=== PATIENT | male | born 1980 | race Caucasian/White ===

== ENCOUNTER 2017-09-17 14:11 | Emergency (ER) | payer OTHER, BC ==
[2017-09-17 14:18] VITALS: BP 138/93; TEMP 98; BMI 36.1
--- NOTE | 2017-09-17 14:26 | PDOC ---
Rapid Medical Evaluation Time Seen by Provider: 09/17/17 14:14 Medical Evaluation: Allergies Allergy/AdvReac Type Severity Reaction Status Date / Time No Known Allergies Allergy Verified 09/17/17 14:14 09/17/17 14:15 I have performed a brief in-patient evaluation of this patient. The patient presents with a chief complaint of abdominal pain in left upper quadrant with movement only x 2 days. States back injury Sunday on the job and feels the pain is in conjunction to injury. Took ibuprofen with no relief of pain. Denies nausea, vomiting, diarrhea or constipation. Pertinent physical exam findings: NAD Lungs cta bilateral Heart s1s2 abdomen: + tenderness in left upper quadrant, + bowel sounds I have ordered the following: took ibuprofen this am will defer orders to md/pa attending to patient. The patient will proceed to the ed for further evaluation.
[2017-09-17] MEDS ORDERED: KETOROLAC TROMETHAMINE 60 MG/2 ML VIAL IM ONE (16:30)
--- NOTE | 2017-09-17 16:30 | PDOC ---
History of Present Illness - General Chief Complaint: Pain Stated Complaint: ABD PAIN Time Seen by Provider: 09/17/17 14:14 History Source: Patient Exam Limitations: No Limitations - History of Present Illness Initial Comments: CHIEF COMPLAINT: 37 y/o afebrile male c/o abdominal pain x 2 days. HISTORY OF PRESENT ILLNESS: The patient states 3 days ago he lifted something heavy at work and strained a muscle in his back. He states the next day he began feeling abdominal pain around his belly button that he states is only present when he moves or touches the area. He denies f/c, n/v/d, CP, SOB, cough , hemoptysis, hematuria, dysuria, decrease in PO intake, decrease in urinary output, smoking history. Vital signs on arrival are notable for pulse of 125. REVIEW OF SYSTEMS: GENERAL/CONSTITUTIONAL: No fever/chills. No weakness. No weight change. HEAD, EYES, EARS, NOSE AND THROAT: No change in vision. No ear pain or discharge. No sore throat. CARDIOVASCULAR: No chest pain or shortness of breath. RESPIRATORY: No cough, wheezing, or hemoptysis. GASTROINTESTINAL: +abd pain. No nausea, vomiting diarrhea. GENITOURINARY: No dysuria, frequency, or change in urination. MUSCULOSKELETAL: No joint or muscle swelling or pain. No neck or back pain. SKIN: No rash or easy bruising. NEUROLOGIC: No headache, vertigo, loss of consciousness, or loss of sensation. PHYSICAL EXAM: GENERAL: The patient is awake, alert, and fully oriented, in no acute distress. He is well appearing and ambulatory. HEAD: Normal with no signs of trauma. ENT: Pupils equal, round and reactive to light, extraocular movements intact, sclera anicteric, conjunctiva clear. Neck supple. LUNGS: Clear to auscultation bilaterally. Normal excursion. No respiratory distress or use of accessory muscles. CV: RRR, S1/S2, no MRG. Cap refill < 2 sec. ABDOMEN: Soft, non-distended, tender to palpation around umbilicus, especially superior umbilical region. No hernias appreciated. No rebound, guarding or rigidity. No mcburney's point TTP. No RUQ TTP. EXTREMITIES: Normal range of motion, no edema. NEUROLOGICAL: Normal speech, normal gait. CN II-XII grossly intact. SKIN: Warm, dry, normal turgor, no rashes or lesions noted. Past History - Past Medical History Allergies/Adverse Reactions: Allergies Allergy/AdvReac Type Severity Reaction Status Date / Time No Known Allergies Allergy Verified 09/17/17 14:14 Home Medications: Ambulatory Orders NK [No Known Home Medication] 09/17/17 COPD: No Other medical history: DENIES. - Suicide/Smoking/Psychosocial Hx Smoking History: Never smoked Have you smoked in the past 12 months: No Hx Alcohol Use: No Drug/Substance Use Hx: No *Physical Exam - Vital Signs Last Vital Signs Temp Pulse Resp BP Pulse Ox 98 F 125 H 19 138/93 96 09/17/17 14:14 09/17/17 14:14 09/17/17 14:14 09/17/17 14:14 09/17/17 14:14 Medical Decision Making - Medical Decision Making A/P: 37 y/o male with most likely small hernia s/p lifting something heavy at work 3 days ago. Will give IM toradol and reassess. Patient states he feels better and HR has improved. He does still have tachycardia but his previous visit in 2017 he also had tachycardia. He did see a explosives detonator but does not recall if he mentioned that. Will give work note. Suggested he lay down for the next few days, avoid heavy lifting and return to the ER with any worsening or concerning symptoms. The patient verbalizes understanding of all instructions, has no further questions and is awaiting discharge. *DC/Admit/Observation/Transfer Diagnosis at time of Disposition: Hernia, Tachycardia Abdominal pain Qualifiers: Abdominal location: periumbilical Qualified Code(s): R10.33 - Periumbilical pain - Discharge Dispostion Disposition: HOME Condition at time of disposition: Improved - Referrals - Patient Instructions Printed Discharge Instructions: DI for Abdominal Pain-Adult, DI for Ventral Hernia Additional Instructions: Discharge Instructions: -Lie down flat on your back as much as possible over the next few days -Take Motrin for pain if needed -Avoid heavy lifting -Follow up with your doctor within 1 week -Follow up with your explosives detonator regarding your fast heart rate -Return to the ER with any worsening or concerning symptoms - Post Discharge Activity Forms/Work/School Notes: Back to Work
[2017-09-17] MEDS ORDERED: KETOROLAC TROMETHAMINE 60 MG/2 ML VIAL ONE (16:32)
[2017-09-17 17:17] VITALS: PULSE 114
== END 2017-09-17 17:41 | disposition home or self-care (01) ==
LOC: JERFT 14:11 → JER 14:11 → JERFT 17:41
CPT/HCPCS: 99281-25

== ENCOUNTER 2018-02-08 14:01 | Emergency (ER) | payer BC ==
--- NOTE | 2018-02-08 14:59 | PDOC ---
Rapid Medical Evaluation Time Seen by Provider: 02/08/18 14:51 Medical Evaluation: Allergies Allergy/AdvReac Type Severity Reaction Status Date / Time No Known Allergies Allergy Verified 09/17/17 14:14 02/08/18 14:52 I have performed a brief in-person evaluation of this patient. The patient presents with a chief complaint of: Persistent b/l ear pain x 1 week , R>L despite po and ear drops, no f/c. S/p swimming 3 weeks ago. Sent in by PMD to r/o mastoiditis Pertinent physical exam findings:sig ttp w/ minimal swelling to R external ear w / sig ttp over R mastoid, will defer internal exam to FT provider I have ordered the following:labs The patient will proceed to the ED for further evaluation. Discharge Disposition - Diagnosis Ear pain Qualifiers: Laterality: bilateral Qualified Code(s): H92.03 - Otalgia, bilateral - Referrals Referrals: Mary Suazo MD [Primary Care Provider] - - Patient Instructions - Post Discharge Activity
[2018-02-08 15:00] VITALS: BMI 39.5
[2018-02-08] MEDS ORDERED: KETOROLAC TROMETHAMINE 30 MG/1 ML VIAL IVPB STA (15:28)
[2018-02-08] MEDS ORDERED: CLINDAMYCIN 600MG PREMIX IVPB 600 MG/50 ML BAG IVPB ONE ×2 (15:38→15:56)
[2018-02-08] MEDS ORDERED: KETOROLAC TROMETHAMINE 30 MG/1 ML VIAL ONE (15:42)
--- NOTE | 2018-02-08 15:48 | PDOC ---
History of Present Illness - General Chief Complaint: Ear Problem Stated Complaint: EAR PROBLEM (PCP SENT) Time Seen by Provider: 02/08/18 14:51 History Source: Patient Exam Limitations: No Limitations - History of Present Illness Initial Comments: 02/08/18 15:42 37 yr male history of high cholesterol presents from PCP Dr. Mary Suazo to r/o mastoiditis. Pt currently being treated with Augmentin day 6 with worsening symptoms started with left ear otitis externa 2 weeks ago placed on Amox, then switched to Augmentin, now has increasing and worsening pain to the right ear, right jaw with night sweats. Pt having difficulty opening mouth. Past History - Past Medical History Allergies/Adverse Reactions: Allergies Allergy/AdvReac Type Severity Reaction Status Date / Time No Known Allergies Allergy Verified 09/17/17 14:14 Home Medications: Ambulatory Orders Ciprofloxacin HCl/Dexameth [Ciprodex Otic Suspension] 4 drop OD BID #1 bottle Ciprofloxacin [Cipro -] 500 mg PO Q12H 10 Days #20 tablet 02/08/18 COPD: No Hypercholesterolemia: Yes - Suicide/Smoking/Psychosocial Hx Smoking History: Never smoked Have you smoked in the past 12 months: No Hx Alcohol Use: No Drug/Substance Use Hx: No Review of Systems - Review of Systems Able to Perform ROS?: Yes Is the patient limited Citizen Of [place] proficient: No Constitutional: Yes: Symptoms Reported HEENTM: Yes: Symptoms Reported *Physical Exam - Vital Signs Last Vital Signs Temp Pulse Resp BP Pulse Ox 98.9 F 109 H 18 148/91 98 02/08/18 14:52 02/08/18 14:52 02/08/18 14:52 02/08/18 14:52 02/08/18 14:52 - Physical Exam General Appearance: Yes: Nourished, Appropriately Dressed, Other (appears uncomfortable) HEENT: positive: EOMI, AFSANEH, TM Erythema, Other (right ear positive swelling of canal, TTP pre and post auricular, tenderness with swelling over the mastoid bone. left ear with white/yellow pus drainage in the external canal, neg mastoid tenderness ). negative: Rhinorrhea, Sinus Tenderness Neck: positive: Supple, Lymphadenopathy (R). negative: Lymphadenopathy (L) Respiratory/Chest: positive: Lungs Clear, Normal Breath Sounds Cardiovascular: positive: Regular Rhythm, Regular Rate Integumentary: positive: Rash (facial rash to ears with dry flaky skin ) Neurologic: positive: Fully Oriented, Alert, Normal Mood/Affect, Normal Response , Motor Strength 11/17 ED Treatment Course - LABORATORY CBC & Chemistry Diagram: 02/08/18 15:26 02/08/18 15:26 - RADIOLOGY Radiology Studies Ordered: Category Date Time Status TEMPORAL BONES CT WITH CONTR [CT] Stat CT Scan 02/08/18 15:37 Ordered Medical Decision Making - Medical Decision Making 02/08/18 15:51 cc: ear pain getting worse despite 6 days Augmentin had fever and night sweats last night sent by PCP to r/o mastoiditis will check labs, IVAB clindamycin Ct temporal bones with contrast toradol for pain 02/08/18 17:35 pt feels better with toradol, awaiting CT scan pt stable charge nurse Sahar aware and is placing pt in the [facility] room. I have signed out the case to main ER attending Dr. Arreola. case discussed . pt is waiting for CT . 02/08/18 19:06 *DC/Admit/Observation/Transfer Diagnosis at time of Disposition: Otitis media, Acute otitis externa of right ear Ear pain Qualifiers: Laterality: bilateral Qualified Code(s): H92.03 - Otalgia, bilateral - Discharge Dispostion Disposition: HOME Condition at time of disposition: Good - Prescriptions Prescriptions: Ciprofloxacin [Cipro -] 500 mg PO Q12H 10 Days #20 tablet Ciprofloxacin HCl/Dexameth [Ciprodex Otic Suspension] 4 drop OD BID #1 bottle - Referrals Referrals: Raghav Riggs MD [Staff Physician] - Mary Suazo MD [Primary Care Provider] - Gordy Nair MD [Staff Physician] - - Patient Instructions Printed Discharge Instructions: DI for Otitis Externa, DI for Otitis Media ( Middle Ear Infection)-Child Additional Instructions: Your laboratory / imaging results were discussed with you, CT results with otitis media and otitis externa. Follow up with your physician and consultants as instructed, take your medications as instructed including Ciprofloxicin oral antibiotics twice a day for 10 days. also Ciprodex drops for your right ear twice a day as well. Make sure to keep the ear CLEAN and Dry, use cotton ball when you are showering. follow up with ENT, Dr. Nair for your ear, call on Sunday for appointment. Return if worsening symptoms including fevers, headache, vomiting, visual or hearing disturbances, abdominal pain, chest pain, shortness of breath, syncope, dehydration, inability to take things by mouth/vomiting, altered mental status, or worsening concerning symptoms. your medications on discharge include_ side effects may include upset stomach, abdominal pain, vomiting, or diarrhea. do not drink alcohol with your medications. Print Language: CHADIAN - Post Discharge Activity
[2018-02-08 15:51] LABS: BASO % 0.5 % (0-2.0); EOS % 0.7 % (0-4.5); HEMATOCRIT 34.9 % (35.4-49); HEMOGLOBIN 12.3 GM/dL (11.7-16.9); LYMPH % 20.5 % (8-40); MCH 31.3 pg (25.7-33.7); MCHC 35.3 g/dl (32.0-35.9); MEAN CELL VOLUME 88.5 fl (80-96); MEAN PLT VOLUME 8.4 fl (7.5-11.1); MONO % 8.1 % (3.8-10.2); NEUT % 70.2 % (42.8-82.8); PLATELET COUNT 251 K/MM3 (134-434); RBC 3.94 M/mm3 (4.00-5.60); RDW 13.1 % (11.9-15.9); WHITE BLOOD COUNT 9.5 K/mm3 (4.0-10.0)
[2018-02-08 15:59] LABS: URINE APPEARANCE CLEAR; URINE BILIRUBIN NEGATIVE (<2.0 mg/dL); URINE COLOR LTYELLOW; URINE GLUCOSE (UA) NEGATIVE (NEGATIVE); URINE KETONE NEGATIVE (NEGATIVE); URINE LEUK ESTERASE NEGATIVE (NEGATIVE); URINE NITRITE NEGATIVE (NEGATIVE); URINE PROTEIN NEGATIVE (NEGATIVE)
[2018-02-08 16:05] LABS: ALK PHOS 80 U/L (45-117); ANION GAP 6 (8-16); BILIRUBIN,TOTAL 1.1 mg/dL (0.2-1.0); BLOOD UREA NITROGEN 10 mg/dL (7-18); CHLORIDE 104 mmol/L (98-107); CO2 31 mmol/L (21-32); GLUCOSE,RANDOM 101 mg/dL (74-106); POTASSIUM 3.5 mmol/L (3.5-5.1); SGOT/AST 84 U/L (15-37); SGPT/ALT 99 U/L (12-78); SODIUM 141 mmol/L (136-145); TOT PROT 7.8 g/dl (6.4-8.2)
[2018-02-08 16:11] LABS: INR 1.15 (0.82-1.09)
[2018-02-08] MEDS ORDERED: AMPICILLIN NA/SULBACTAM NA 1.5 GM in SODIUM CHLORIDE 100 ML IVPB ONE (20:46)
--- NOTE | 2018-02-08 20:50 | PDOC ---
*Physical Exam - Vital Signs Last Vital Signs Temp Pulse Resp BP Pulse Ox 98.9 F 109 H 18 148/91 98 02/08/18 14:52 02/08/18 14:52 02/08/18 14:52 02/08/18 14:52 02/08/18 14:52 - Physical Exam Comments: 02/08/18 21:40 General: Well appearing, awake and alert, NAD. HEENT: NCAT, PERRL, EOMI, clear conjunctiva, anicteric, moist mucus membranes, clear oropharynx. Airway patent, normal phonation. Uvula midline. No sinus tenderness. +erythematous external auditory canal on right, T.M mildly erythematous, tender to pinna manipulation. No mastoid tenderness or erythema, no crepitus. Neck: neck supple, FROM Resp: CTAB, normal and even respirations, no respiratory distress CVS: RRR, no murmurs, 2+ peripheral pulses throughout, no peripheral edema Abdomen: soft, NTND, no peritoneal signs. Back: nontender, normal inspection and ROM MSK: no edema, [place] x4, ROM intact. No clubbing or cyanosis. normal bulk and tone. Neuro: alert, oriented appropriately; no focal neurologic deficits. SILT, 5/5 distal and prox strength in all extrem. speech clear. Skin: warm and well perfused, cap refill <2 sec, normal color; no rash ED Treatment Course - LABORATORY CBC & Chemistry Diagram: 02/08/18 15:26 02/08/18 15:26 - ADDITIONAL ORDERS Additional order review: Laboratory Results 02/08/18 02/08/18 02/08/18 15:50 15:26 15:26 PT with INR INR Sodium 141 Potassium 3.5 Chloride 104 Carbon Dioxide 31 Anion Gap 6 L BUN 10 Creatinine 1.0 Creat Clearance w eGFR > 60 Random Glucose 101 D Calcium 9.0 Total Bilirubin 1.1 H AST 84 H D ALT 99 H D Alkaline Phosphatase 80 Total Protein 7.8 Albumin 4.0 Urine Color Ltyellow Urine Appearance Clear Urine pH 6.0 Ur Specific [place] 1.016 Urine Protein Negative Urine Glucose (UA) Negative Urine Ketones Negative Urine Blood Negative Urine Nitrite Negative Urine Bilirubin Negative Urine Urobilinogen 2.0 Ur Leukocyte Esterase Negative Blood Type O POSITIVE Antibody Screen Negative 02/08/18 15:26 PT with INR 13.00 INR 1.15 H Sodium Potassium Chloride Carbon Dioxide Anion Gap BUN Creatinine Creat Clearance w eGFR Random Glucose Calcium Total Bilirubin AST ALT Alkaline Phosphatase Total Protein Albumin Urine Color Urine Appearance Urine pH Ur Specific [place] Urine Protein Urine Glucose (UA) Urine Ketones Urine Blood Urine Nitrite Urine Bilirubin Urine Urobilinogen Ur Leukocyte Esterase Blood Type Antibody Screen 02/08/18 15:26 RBC 3.94 L MCV 88.5 MCHC 35.3 RDW 13.1 MPV 8.4 Neutrophils % 70.2 Lymphocytes % 20.5 D Monocytes % 8.1 Eosinophils % 0.7 Basophils % 0.5 - Medications Given in the ED: ED Medications Discontinued Medications Generic Name Dose Route Start Last Admin Trade Name Freq PRN Reason Stop Dose Admin Clindamycin Phosphate 600 mg in 50 mls @ 100 mls/hr 02/08/18 15:38 02/08/18 16:01 Cleocin 600 Mg Premix Ivpb - IVPB 02/08/18 16:07 100 mls/hr ONCE ONE Administration Protocol Ketorolac Tromethamine 30 mg 02/08/18 15:28 02/08/18 15:47 Toradol Injection - IVPB 02/08/18 15:29 30 mg ONCE STA Administration Medical Decision Making - Medical Decision Making 02/08/18 20:47 The patient was seen and evaluated in conjunction with midlevel provider under my direct supervision, ancillary studies were reviewed. I agree with the plan as outlined. 37 yr male history of high cholesterol presents from PCP Dr. Mary Suazo to r/o mastoiditis. s/p amoxicillin then augmentin, cortisporin drops , but despite therapy, now has increasing and worsening pain to the right ear, right jaw with night sweats. Pt having difficulty opening mouth. DDx. mastoiditis, otitis externa, otitis media. sinusitis. Vital signs with mild tachy, likely from pain/fever. repeated VS improved. exam consistent with right sided OE and OM, no mastoid tenderness or erythema, improving. EOMI, no sinus tenderness, airway intact, normal phonation, no trismus. CN II-XII intact, physical exam as documented. treated with toradol., IV clindamycin. broadened to IV unasyn as well. labs reviewed, wnl. reassuring, no fevers and nontoxic. 850pm - CT with bilateral air in mastoid cells, otitis medial and otitis externa. failing Outpatient abx, ENT consultation now, Dr. Nair, admit to for medical management, IV abx and ENT cs. spoke with Dr. Riggs, recommended on Ciprodex BID drops for affected ear and Oral Cipro BID x 7-10 days. ENT followup on Sunday, call for appt with Dr. Nair as provided. instructions as below. motrin/tylenol PRN pain control. no indication for admission, also no s/ s or CT imaging to suggest mastoiditis. Follow up with PCP/ENT specialist (Dr. Nair) take your medications as instructed including Ciprofloxicin oral antibiotics twice a day for 10 days. also Ciprodex drops for your right ear twice a day as well. Make sure to keep the ear CLEAN and Dry, use cotton ball when you are showering. follow up with ENT, Dr. Nair or Dr. Riggs, call on Sunday for appointment. PRN motrin/tylenol. 02/08/18 21:37 02/08/18 21:40 02/08/18 21:41 *DC/Admit/Observation/Transfer Diagnosis at time of Disposition: Ear pain Qualifiers: Laterality: bilateral Qualified Code(s): H92.03 - Otalgia, bilateral Otitis media Qualifiers: Otitis media type: unspecified Chronicity: acute Qualified Code(s): H66.90 - Otitis media, unspecified, unspecified ear Acute otitis externa of right ear Qualifiers: Otitis externa type: unspecified type Qualified Code(s): H60.501 - Unspecified acute noninfective otitis externa, right ear - Discharge Dispostion Disposition: HOME Condition at time of disposition: Good Decision to Admit order: No - Prescriptions Prescriptions: Ciprofloxacin [Cipro -] 500 mg PO Q12H 10 Days #20 tablet Ciprofloxacin HCl/Dexameth [Ciprodex Otic Suspension] 4 drop .ROUTE BID #1 bottle - Referrals Referrals: Mary Suazo MD [Primary Care Provider] - Gordy Nair MD [Staff Physician] - Raghav Riggs MD [Staff Physician] - - Patient Instructions Printed Discharge Instructions: DI for Otitis Externa, DI for Otitis Media ( Middle Ear Infection)-Child Additional Instructions: Your laboratory / imaging results were discussed with you, CT results with otitis media and otitis externa. Follow up with your physician and consultants as instructed, take your medications as instructed including Ciprofloxicin oral antibiotics twice a day for 10 days. also Ciprodex drops for your right ear twice a day as well. Make sure to keep the ear CLEAN and Dry, use cotton ball when you are showering. follow up with ENT, Dr. Nair for your ear, call on Sunday for appointment. Return if worsening symptoms including fevers, headache, vomiting, visual or hearing disturbances, abdominal pain, chest pain, shortness of breath, syncope, dehydration, inability to take things by mouth/vomiting, altered mental status, or worsening concerning symptoms. your medications on discharge include_ side effects may include upset stomach, abdominal pain, vomiting, or diarrhea. do not drink alcohol with your medications. Print Language: KAZAKH - Post Discharge Activity
[2018-02-08] MEDS ORDERED: ACETAMINOPHEN 325 MG TABLET (FP) PO ONE (21:12)
[2018-02-08] MEDS ORDERED: ACETAMINOPHEN 325 MG TABLET (FP) ONE (21:42)
[2018-02-08 22:08] VITALS: BP 140/83; PULSE 88; TEMP 99.4
== END 2018-02-08 22:19 | disposition home or self-care (01) ==
LOC: JER 14:01
PROC: 3E03329 Introduction of Other Anti-infective into Peripheral Vein, Percutaneous Approach (ICD-10-PCS; principal; 2018-02-08)
PROC: 3E0333Z Introduction of Anti-inflammatory into Peripheral Vein, Percutaneous Approach (ICD-10-PCS; 2018-02-08)
DX: H92.03 Otalgia, bilateral (principal); H66.41 Suppurative otitis media, unspecified, right ear; E78.00 Pure hypercholesterolemia, unspecified
CPT/HCPCS: 36415; 70481-TC; 80053; 81003; 85025; 85610; 86850; 86900; 86901; 87040; 99282-25

== ENCOUNTER 2018-02-17 22:23 | Emergency (ER) | payer BC ==
[2018-02-17 22:33] VITALS: BP 132/84; PULSE 105; TEMP 98.8; BMI 37.9
--- NOTE | 2018-02-18 01:37 | PDOC ---
History of Present Illness <Aubrie Templeton Emilia - Last Filed: 02/18/18 01:37> - General History Source: Patient, Significant Other Exam Limitations: No Limitations - History of Present Illness Initial Comments: 02/18/18 01:38 The patient is a 37 year old male, with no significant past medical history, who presents to the emergency department with painful swallowing today. The patient was recently placed on a regimen of ciprofloxacin for otitis externa about 10 days ago and has "two pills left". He states he had a foreign body "sensation" for about a week which progressed to a throat tightness and pain exacerbated with swallowing his saliva this morning. He states he just returned from a driving trip to and from [place]. The patient denies chest pain, shortness of breath, headache and dizziness. The patient denies fever, chills, nausea, vomit, diarrhea and constipation.The patient denies dysuria, frequency, urgency and hematuria. Allergies: NKDA Past surgical history: none reported <Skylar Mercado - Last Filed: 02/18/18 01:44> <Martina Pavon - Last Filed: 02/18/18 03:22> - General Chief Complaint: Sore Throat Stated Complaint: THROAT PAIN Time Seen by Provider: 02/18/18 01:19 Past History - Past Medical History COPD: No Hypercholesterolemia: Yes - Suicide/Smoking/Psychosocial Hx Smoking History: Never smoked Have you smoked in the past 12 months: No Hx Alcohol Use: No Drug/Substance Use Hx: No <Say Templetonrao Nieto - Last Filed: 02/18/18 01:37> <Skylar Mercado - Last Filed: 02/18/18 01:44> <Martina Pavon - Last Filed: 02/18/18 03:22> - Past Medical History Allergies/Adverse Reactions: Allergies Allergy/AdvReac Type Severity Reaction Status Date / Time No Known Allergies Allergy Verified 02/17/18 22:31 Home Medications: Ambulatory Orders Ciprofloxacin HCl/Dexameth [Ciprodex Otic Suspension] 4 drop OD BID #1 bottle Ciprofloxacin [Cipro -] 500 mg PO Q12H 10 Days #20 tablet 02/08/18 Review of Systems - Review of Systems Able to Perform ROS?: Yes Comments:: 02/18/18 01:44 CONSTITUTIONAL: Absent: fever, chills, diaphoresis, generalized weakness, malaise, loss of appetite HEENT: (+) painful swallowing. Pain to anterior lower neck. Absent: rhinorrhea, nasal congestion, throat swelling, mouth swelling, ear pain, eye pain, visual Changes CARDIOVASCULAR: Absent: chest pain, syncope, palpitations, irregular heart rate, lightheadedness , peripheral edema RESPIRATORY: Absent: cough, shortness of breath, dyspnea with exertion, orthopnea, wheezing, stridor, hemoptysis GASTROINTESTINAL: Absent: abdominal pain, abdominal distension, nausea, vomiting, diarrhea, constipation, melena, hematochezia GENITOURINARY: Absent: dysuria, frequency, urgency, hesitancy, hematuria, flank pain, genital pain MUSCULOSKELETAL: Absent: myalgia, arthralgia, joint swelling SKIN: Absent: rash, itching, pallor HEMATOLOGIC/IMMUNOLOGIC: Absent: easy bleeding, easy bruising, lymphadenopathy, frequent infections ENDOCRINE: Absent: unexplained weight gain, unexplained weight loss, heat intolerance, cold intolerance NEUROLOGIC: Absent: headache, focal weakness or paresthesias, dizziness, unsteady gait, seizure, mental status changes, bladder or bowel incontinence PSYCHIATRIC: Absent: anxiety, depression, suicidal or homicidal ideation, hallucinations. <Skylar Mercado - Last Filed: 02/18/18 01:44> *Physical Exam - Vital Signs Last Vital Signs Temp Pulse Resp BP Pulse Ox 98.8 F 105 H 18 132/84 98 02/17/18 22:31 02/17/18 22:31 02/17/18 22:31 02/17/18 22:31 02/17/18 22:31 <Aubrie Templeton - Last Filed: 02/18/18 01:37> - Vital Signs Last Vital Signs Temp Pulse Resp BP Pulse Ox 98.8 F 105 H 18 132/84 98 02/17/18 22:31 02/17/18 22:31 02/17/18 22:31 02/17/18 22:31 02/17/18 22:31 - Physical Exam Comments: 02/18/18 01:44 GENERAL: Well developed, well nourished. Awake and alert. No acute distress. HEENT: Normocephalic, atraumatic. PERRLA, EOMI. No conjunctival pallor. Sclera are non- icteric. Moist mucous membranes. Oropharynx is clear. Uvula is midline. No exudate. Tonsils are nonedematous. NECK: (+) subjective tenderness upon swallowing. midline tenderness to palpation of the anterior neck just superior to the base. Supple. Full ROM. No JVD. Carotid pulses 2+ and symmetric, without bruits. No thyromegaly. No lymphadenopathy. No tender lymphadenopathy. CARDIOVASCULAR: Regular rate and rhythm. No murmurs, rubs, or gallops. Distal pulses are 2+ and symmetric. PULMONARY: No evidence of respiratory distress. Lungs clear to auscultation bilaterally. No wheezing, rales or rhonchi. ABDOMINAL: Soft. Non-tender. Non-distended. No rebound or guarding. No organomegaly. Normoactive bowel sounds. MUSCULOSKELETAL Normal range of motion at all joints. No bony deformities or tenderness. No CVA tenderness. EXTREMITIES: No cyanosis. No clubbing. No edema. No calf tenderness. SKIN: Warm and dry. Normal capillary refill. No rashes. No jaundice. NEUROLOGICAL: Alert, awake, appropriate. Cranial nerves 2-12 intact. Normoreflexic in the upper and lower extremities. Normal speech. Toes are down-going bilaterally. Gait is normal without ataxia. PSYCHIATRIC: Cooperative. Good eye contact. Appropriate mood and affect. <Skylar Mercado - Last Filed: 02/18/18 01:44> - Vital Signs Last Vital Signs Temp Pulse Resp BP Pulse Ox 98.8 F 105 H 18 132/84 98 02/17/18 22:31 02/17/18 22:31 02/17/18 22:31 02/17/18 22:31 02/17/18 22:31 <Martina Pavon - Last Filed: 02/18/18 03:22> Medical Decision Making - Medical Decision Making 02/18/18 03:12 Patient Name: ARLEN ANGEL THIS IS A PRELIMINARY REPORT FROM [facility] DATE OF SERVICE: 2018-02-18 02:08:22 IMAGES: [id number] EXAM: CT neck with vascular contrast HISTORY: Pain and tenderness COMPARISON: None. FINDINGS: Parapharyngeal and retropharyngeal submucosal tissues are normal without focal fluid collection or mass. Submandibular, parotid, and thyroid glands are normal. Cervical vascular structures enhance normally. Cervical chain lymph nodes are not enlarged. Pulmonary apices appear normal. IMPRESSION: No acute findings <Martina Pavon - Last Filed: 02/18/18 03:22> *DC/Admit/Observation/Transfer <Aubrie Templeton - Last Filed: 02/18/18 01:37> - Attestations Physician Attestion: 02/18/18 01:49 Documentation prepared by Skylar Mercado, acting as medical physiologist for Aubrie Templeton MD <Skylar Mercado - Last Filed: 02/18/18 01:44> - Discharge Dispostion Decision to Admit order: No <Martina Pavon - Last Filed: 02/18/18 03:22> Diagnosis at time of Disposition: Pharyngitis - Discharge Dispostion Disposition: HOME Condition at time of disposition: Stable - Referrals Referrals: Mary Suazo MD [Primary Care Provider] - Gordy Nair MD [Staff Physician] - - Patient Instructions Printed Discharge Instructions: Viral Pharyngitis - Post Discharge Activity
== END 2018-02-18 03:20 | disposition home or self-care (01) ==
LOC: JER 22:23
DX: J02.9 Acute pharyngitis, unspecified (principal)
CPT/HCPCS: 70490-TC; 99281-25